=== PATIENT | male | born 1975 ===

== ENCOUNTER 2018-10-19 13:17 | Emergency (ER) | payer OTHER ==
[2018-10-19 13:33] VITALS: BP 113/69; PULSE 72; RESP 16; TEMP 98.2; O2SAT 100
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
== END 2018-10-19 15:42 | disposition home or self-care (01) ==
LOC: H.ER 13:17
DX: M25.512 Pain in left shoulder (principal); S13.4XXA Sprain of ligaments of cervical spine, initial encounter; V43.52XA Car driver injured in collision with other type car in traffic accident, initial encounter; Y92.410 Unspecified street and highway as the place of occurrence of the external cause; M75.32 Calcific tendinitis of left shoulder
CPT/HCPCS: 73030; 96372; 99283; J1885